=== PATIENT | male | born 1960 | race Caucasian/White ===

== ENCOUNTER 2023-11-13 15:21 | Outpatient (CLI) | payer BC | END 2023-11-13 15:22 | disposition home or self-care (01) | LOC: CSHMRI 15:21 | PROVIDERS: ATTEND Orthopaedic Surgery | DX: M50.10 Cervical disc disorder with radiculopathy, unspecified cervical region (principal); M48.02 Spinal stenosis, cervical region; M53.82 Other specified dorsopathies, cervical region | CPT/HCPCS: 72141 ==